=== PATIENT | female | born 1945 | race Caucasian/White ===

== ENCOUNTER 2023-07-19 17:57 | Inpatient (IN) | payer OTHER ==
[2023-07-19 18:59] LABS: Protime INR 1.51
[2023-07-19 19:00] LABS: Absolute Lymphocytes (CBC) 6.3 K/uL (0.7-4.9); Hematocrit 24.5 % (36.0-45.0); MCV 115.8 fL (80-100); MPV 8.5 fL (7.6-11.3); Platelets 157 thou/uL (152-406); RBC Red Blood Cell Count 2.12 M/uL (3.86-4.86)
[2023-07-19 19:03] LABS: Albumin 1.7 g/dL (3.4-5.0); Bilirubin Direct 9.2 mg/dL (0-0.2); Bilirubin Total 11.2 mg/dL (0.2-1.0); Magnesium 1.8 mg/dL (1.6-2.4); Potassium 4.2 mEq/L (3.5-5.1); Protein, Total 7.7 g/dL (6.4-8.2); Troponin High Sensitivity 10.6 pg/mL (<58.9)
[2023-07-19] MEDS ORDERED: LORazepam 2 MG/ML VIAL ONE (20:09)
--- NOTE | 2023-07-19 20:16 | RAD REPORT ---
EXAM DESCRIPTION: Eliseo Single View07/19/2023 7:13 pm CLINICAL HISTORY: DYSPNEA COMPARISON: No comparisons TECHNIQUE: Portable AP view of the chest. FINDINGS: Patchy bibasilar opacities with interstitial thickening, with a crescentic linear opacity at the left lung base. No pneumothorax or effusion. The cardiomediastinal contours are unremarkable. IMPRESSION: Mild bibasilar patchy opacities, in part interstitial, which may be related to chronic i nterstitial disease or fibrosis.
[2023-07-19 21:01] LABS: Platelet Estimate ADEQ; White Blood Cell Scan OK (OK)
[2023-07-19 21:02] LABS: Anisocytosis 1+; Blood Morphology Comment NOTED (NOT SEEN); Poikilocytosis 1+
--- NOTE | 2023-07-19 21:09 | RAD REPORT ---
EXAM DESCRIPTION: CT - Abdomen Pelvis W Contrast - 07/19/2023 8:25 pm CLINICAL HISTORY: ABDOMINAL DISTENTION COMPARISON: Chest Single View dated 07/19/2023 TECHNIQUE: Thin cut axial CT imaging of the abdomen and pelvis was performed following intravenous a dministration of intravenous contrast. Multiplanar reformats were generated and reviewed. All CT scans are performed using dose optimization technique as appropriate and may include automated exposure control or mA/KV adjustment according to patient size. FINDINGS: Small layering left pleural effusion with underlying segmental atelectasis. Calcified left lower lobe 1.9 cm nodule suggest granuloma. The liver demonstrates heterogeneous enhancement particularly along its central portions, with lobula jasmyne contour. Findings may relate to transient hepatic enhancement differences in the setting of cirrh osis. Evaluation for focal masses is limited on this single-phase exam. Re- cannulization of the umbi lical vein, with portosystemic shunting seen in the region of the anal canal as well. Spleen, adrenal glands, and pancreas show no suspicious findings apart from punctate granulomatous calcifications of the pancreas. . Gallbladder shows apparent wall thickening, which may be present in the setting of c irrhosis and ascites. Symmetric renal function is seen with no hydronephrosis or suspicious renal mass. No dilated bowel loops. Prominent fluid-filled central abdominal small bowel loops without evidence o f focal transition although breathing motion artifact limits evaluation, with mild bowel wall thicken ing. Moderate free ascites. No free air, fluid collections, or inflammatory stranding. No hernia, mas s or bulky lymphadenopathy. The urinary bladder is without significant finding. No suspicious bony findings. Mild to moderate diffuse body wall edema. IMPRESSION: Stigmata of hepatic cirrhosis and portal hypertension. Heterogeneous enhancement particularly in the central aspects of the liver, favored to represent ni sient hepatic enhancement differences. Evaluation for hepatic focal lesions is limited on this single -phase exam. Fluid filling within nondistended small bowel loops with mild wall prominence. Findings may relate to diarrheal state or enteropathy in the setting of cirrhosis and portal hypertension. Moderate free ascites. Small left pleural effusion and [id number] diffuse body wall edema, whic h may indicate a degree of volume overload.
--- NOTE | 2023-07-19 21:25 | ER ---
Nurse's Notes [facility] Name: Columba Romero Age: 78 yrs Sex: Female : 1945 Arrival Date: 07/19/2023 Time: 17:57 Bed 4 Private MD: Diagnosis: Alcoholic cirrhosis of liver with ascites;Acute and subacute hepatic failure without coma Presentation: 07/19 18:13 Chief complaint: Patient states: Abdominal swelling, swelling to bilateral legs, hx of ph liver cirrhosis, on 5L NC which she uses at home. Also reports SOB with exertion. Coronavirus screen: Vaccine status: Patient reports receiving the 1st dose of the Covid vaccine. Ebola Screen: No symptoms or risks identified at this time. Initial Sepsis Screen: Does the patient meet any 2 criteria? No. Patient's initial sepsis screen is negative. Does the patient have a suspected source of infection? No. Patient's initial sepsis screen is negative. Risk Assessment: Do you want to hurt yourself or someone else? Patient reports no desire to harm self or others. Onset of symptoms was July 19, 2023. 18:13 Method Of Arrival: Wheelchair ph 18:13 Acuity: KAYDEN 2 ph Triage Assessment: 18:20 General: Appears distressed, Behavior is cooperative, appropriate for age, agitated, bp uncooperative. Pain: Complains of pain in abdomen. GI: Abdomen is distended, noted to have ascites. Historical: - Allergies: 18:20 Latex, Natural Rubber; ph 18:20 Codeine; ph 18:20 [place]; ph - PMHx: 18:20 COPD; Cirrhosis of liver; Hypertensive disorder; Diabetes mellitus; ph - PSHx: 18:20 Total abdominal hysterectomy; ph - Immunization history:: Adult Immunizations unknown. - Social history:: Smoking status: Patient denies any tobacco usage or history of. Screenin:32 [facility] ED Fall Risk Assessment (Adult) History of falling in the last 3 months, bp including since admission No falls in past 3 months (0 pts). Abuse screen: Denies threats or abuse. Denies injuries from another. Nutritional screening: No deficits noted. Tuberculosis screening: No symptoms or risk factors identified. Assessment: 18:20 General: SEE TRIAGE NOTE. bp 19:46 Reassessment: Patient appears in no apparent distress at this time. Patient and/or jw7 family updated on plan of care and expected duration. Pain level reassessed. Patient is alert, oriented x 3, equal unlabored respirations, skin warm/dry/pink. 20:00 General: Pt refused to be hooked up to monitor for vital signs. . jw7 20:50 Reassessment: Patient appears in no apparent distress at this time. No changes from 7 previously documented assessment. Patient and/or family updated on plan of care and expected duration. Pain level reassessed. Patient is alert, oriented x 3, equal unlabored respirations, skin warm/dry/pink. 21:30 Reassessment: Patient appears in no apparent distress at this time. No changes from jw7 previously documented assessment. Patient and/or family updated on plan of care and expected duration. Pain level reassessed. Patient is alert, oriented x 3, equal unlabored respirations, skin warm/dry/pink. 22:30 Reassessment: Patient appears in no apparent distress at this time. No changes from 7 previously documented assessment. Patient and/or family updated on plan of care and expected duration. Pain level reassessed. Patient is alert, oriented x 3, equal unlabored respirations, skin warm/dry/pink. 23:30 Reassessment: Patient appears in no apparent distress at this time. Patient and/or jw7 family updated on plan of care and expected duration. Pain level reassessed. Patient is alert, oriented x 3, equal unlabored respirations, skin warm/dry/pink. Vital Signs: 18:13 BP 107 / 59; Pulse 97; Resp 18; Temp 97.2; Pulse Ox 99% on 5 lpm NC; Weight 63.5 kg; ph Height 5 ft. 2 in. ; 19:46 BP 112 / 65; Pulse 94; Resp 18; Pulse Ox 99% ; jw7 23:46 BP 116 / 57; Pulse 93; Resp 17 S; Pulse Ox 100% on 2 lpm NC; jw7 07/20 00:58 BP 136 / 70; Pulse 99; Resp 20; Pulse Ox 100% on 2 lpm NC; km8 07/19 18:13 Body Mass Index 25.61 (63.50 kg, 157.48 cm) ph ED Course: 07/19 18:03 Patient arrived in ED. rg4 18:06 Carline Siddiqui PA-C is PHCP. sb4 18:06 Philip Keating MD is Attending Physician. sb4 18:20 Triage completed. ph 18:21 Arm band placed on Patient placed in an exam room. ph 18:23 Td Mckeon, RN is Primary Nurse. bp 18:32 Patient has correct armband on for positive identification. bp 18:32 Inserted saline lock: 22 gauge in right antecubital area, using aseptic technique. bp Blood collected. 19:15 XRAY CXR (1 view) In Process Unspecified. EDMS 20:27 CT Abd/Pelvis - IV Contrast Only In Process Unspecified. EDMS 21:24 Carline Siddiqui PA-C is PHCP. sb4 21:24 Edenilson Almonte MD is Hospitalizing Provider. sb4 23:44 No provider procedures requiring assistance completed. Patient admitted, IV remains in jw7 place. 23:45 Provided Education on: Need for admit . 7 Administered Medications: 20:10 Drug: Ativan IVP 0.5 mg IVP once Route: IVP; Site: right antecubital; bp 07/20 01:20 Follow up: Response: No adverse reaction km8 Medication: 07/19 23:45 VIS not applicable for this client. [facility] Outcome: 21:25 Decision to Hospitalize by Provider. sb4 07/20 01:18 Admitted to Med/surg accompanied by tech, via stretcher, room 232, with oxygen, with km8 chart, Report called to NENA Hatch Condition: stable Instructed on the need for admit, Demonstrated understanding of instructions, 01:20 Patient left the ED. km8 Signatures: Dispatcher [employer] EDRI Mariya Meng RN RN ph Veronique Salmon rg4 Td Mckeon, RN Marleen Leiva RN RN Carline Coon PA-C PA-C [facility] Edna Cheng RN RN km8 Corrections: (The following items were deleted from the chart) 01:19 07/19 23:44 Admitted to Med/surg accompanied by tech, via wheelchair, room 232, with km8 oxygen, jw7 07/20 01:20 02 23:44 Condition: stable [facility] km8 07/20 01:20 07/19 23:44 Instructed on the need for admit, Demonstrated understanding of km8 instructions, 7 07/20 01:20 07/19 23:44 Admitted to Med/surg accompanied by tech, via stretcher, room 232, with km8 oxygen, with chart, Report called to NENA Hatch km8
--- NOTE | 2023-07-19 21:25 | EDPHYS ---
Physician Documentation [facility] Name: Columba Romero Age: 78 yrs Sex: Female : 1945 Arrival Date: 07/19/2023 Time: 17:57 Bed 4 Private MD: JERRY Physician Philip Keating HPI: 07/19 18:34 This 78 yrs old Female presents to ER via Wheelchair with complaints of swelling, sob. sb4 18:38 Patient with history of alcoholic cirrhosis and COPD on home oxygen presents with sb4 complaints of lower extremity swelling, abdominal swelling, and shortness of breath. states that she stopped taking all of her medications about 2 weeks ago because she felt like they were making her worse. she does still drink alcohol. has required paracentesis in the past. Historical: - Allergies: 18:20 Latex, Natural Rubber; ph 18:20 Codeine; ph 18:20 [place]; ph - PMHx: 18:20 COPD; Cirrhosis of liver; Hypertensive disorder; Diabetes mellitus; ph - PSHx: 18:20 Total abdominal hysterectomy; ph - Immunization history:: Adult Immunizations unknown. - Social history:: Smoking status: Patient denies any tobacco usage or history of. ROS: 18:44 Constitutional: Negative for fever, chills, and weight loss, sb4 18:44 Cardiovascular: Positive for edema, orthopnea, 18:44 Respiratory: Positive for dyspnea on exertion, shortness of breath, 18:44 Abdomen/GI: Positive for 18:44 All other systems are negative, Exam: 18:44 Cardiovascular: Regular rate and rhythm with a normal S1 and S2. MS/ Extremity: sb4 Pulses equal, no cyanosis. Neurovascular intact. Full, normal range of motion. 18:44 Constitutional: The patient appears alert, awake, obviously ill, 18:44 Eyes: Sclera: icterus, is present, 18:44 Respiratory: moderate respiratory distress is noted, Respirations: shallow respirations, 18:44 Abdomen/GI: Inspection: distension, that is moderate, in the right upper quadrant, left upper quadrant, right lower quadrant and left lower quadrant, 18:44 Skin: Appearance: Color: jaundiced, Vital Signs: 18:13 BP 107 / 59; Pulse 97; Resp 18; Temp 97.2; Pulse Ox 99% on 5 lpm NC; Weight 63.5 kg; ph Height 5 ft. 2 in. ; 19:46 BP 112 / 65; Pulse 94; Resp 18; Pulse Ox 99% ; jw7 23:46 BP 116 / 57; Pulse 93; Resp 17 S; Pulse Ox 100% on 2 lpm NC; jw7 07/20 00:58 BP 136 / 70; Pulse 99; Resp 20; Pulse Ox 100% on 2 lpm NC; km8 07/19 18:13 Body Mass Index 25.61 (63.50 kg, 157.48 cm) ph MDM: 07/19 18:22 Patient medically screened. sb4 21:24 Data reviewed: vital signs, nurses notes, lab test result(s), EKG, radiologic studies, sb4 I have discussed the patient's presentation/case with the attending Emergency Department Physician; and as a result, I will admit patient. Counseling: I had a detailed discussion with the patient and/or guardian regarding the historical points, exam findings, and any diagnostic results supporting the discharge/admit diagnosis, lab results, radiology results, the need for further work-up and treatment in the hospital. 07/19 18:22 Order name: BMP; Complete Time: 19:05 sb4 07/19 18:22 Order name: CBC with Diff; Complete Time: 21:04 sb4 07/19 18:22 Order name: Hepatic Function; Complete Time: 19:05 sb4 07/19 18:22 Order name: Lipase; Complete Time: 19:05 sb4 07/19 18:22 Order name: Magnesium; Complete Time: 19:05 sb4 07/19 18:22 Order name: NT PRO-BNP; Complete Time: 19:05 sb4 07/19 18:22 Order name: PT-INR; Complete Time: 19:01 sb4 07/19 18:22 Order name: Ptt, Activated; Complete Time: 19:01 sb4 07/19 18:22 Order name: Troponin HS; Complete Time: 19:05 sb4 07/19 20:23 Order name: AMMONIA sb4 07/19 20:23 Order name: Blood Culture Adult (2) sb4 07/19 20:23 Order name: Lactate w/ 2H reflex if indic. sb4 07/19 21:02 Order name: CBC Smear Scan; Complete Time: 21:04 EDMS 07/19 22:21 Order name: Urinalysis w/ reflexes EDMS 07/19 22:21 Order name: CBC with Automated Diff EDFL 07/19 22:21 Order name: CBC with Automated Diff EDFL 07/19 22:21 Order name: Comprehensive Metabolic Panel EDFL 07/19 22:21 Order name: Comprehensive Metabolic Panel EDFL 07/19 22:24 Order name: Acute Hepatitis Panel EDFL 07/19 22:24 Order name: Fecal Leukocyte Stain EDFL 07/19 22:27 Order name: Alpha Fetoprotein-Tumor Marker EDFL 07/19 22:27 Order name: Alpha Fetoprotein-Tumor Marker EDFL 07/19 18:22 Order name: XRAY CXR (1 view); Complete Time: 20:18 sb4 07/19 19:06 Order name: CT Abd/Pelvis - IV Contrast Only; Complete Time: 21:09 sb4 07/19 22:27 Order name: Abdomen Exam Limited EDFL 07/19 18:22 Order name: EKG; Complete Time: 18:23 sb4 07/19 22:21 Order name: CONS Physician Consult EDFL 07/19 18:22 Order name: Cardiac monitoring; Complete Time: 18:31 sb4 07/19 18:22 Order name: EKG - Nurse/Tech; Complete Time: 19:23 sb4 07/19 18:22 Order name: IV Saline Lock; Complete Time: 18:31 sb4 07/19 18:22 Order name: Labs collected and sent; Complete Time: 18:31 sb4 07/19 18:22 Order name: O2 Per Protocol; Complete Time: 18:31 sb4 07/19 18:22 Order name: O2 Sat Monitoring; Complete Time: 18:31 sb4 EC:32 Rate is 93 beats/min. Rhythm is regular, Normal Sinus Rhythm. AR interval is normal at sb4 164 msec. QRS interval is normal at 58 msec. QT interval is normal at 334 msec. T waves are Normal. No ST changes noted. Clinical impression: No evidence of ischemia. Interpreted by me. Reviewed by me. Administered Medications: 20:10 Drug: Ativan IVP 0.5 mg IVP once Route: IVP; Site: right antecubital; bp 07/20 01:20 Follow up: Response: No adverse reaction km8 Disposition Summary: 07/19/23 21:25 Hospitalization Ordered Notes: Hospitalization Status: Inpatient Admission sb4 Provider: Edenilson Almonte sb4 Location: Telemetry/MedSurg (Inpatient) sb4 Condition: Fair sb4 Problem: an acute exacerbation sb4 Symptoms: are unchanged sb4 Bed/Room Type: Standard sb4 Room Assignment: 232(07/19/23 23:39) vc1 Diagnosis - Alcoholic cirrhosis of liver with ascites sb4 - Acute and subacute hepatic failure without coma sb4 Forms: - Medication Reconciliation Form sb4 - SBAR form sb4 - Leadership Thank You Letter sb4 Signatures: Dispatcher [employer] EDMariya Sykes, RN RN Td Mckeon RN RN bp Jaymie Sabillon RN RN vc1 Carline Siddiqui PA-C PA-C sb4 Edna Cheng RN km8 Corrections: (The following items were deleted from the chart) 07/19 18:45 18:38 Patient with history of cirrhosis and COPD on home oxygen presents with sb4 complaints of. sb4 23:39 21:25 sb4 vc1
[2023-07-19] MEDS ORDERED: ONDANSETRON 4 MG/2 ML VIAL IV PRN (22:16)
[2023-07-19] MEDS: LACTULOSE 20 GM/30 ML UCUP PO SCH (22:24)
[2023-07-19] MEDS: ALBUMIN HUMAN 25% 100 ML IV ONE (22:25)
--- NOTE | 2023-07-19 23:32 | P.HP ---
Certification for Inpatient With expected LOS: >2 Midnights Practitioner: I am a practitioner with admitting privileges, knowledge of patient current condition, hospital course, and medical plan of care. Services: Services provided to patient in accordance with Admission requirements found in Title 42 Section 412.3 of the Code of Federal Regulations Patient History Date of Service: 07/19/23 Reason for admission: Decompensated liver cirrhosis History of Present Illness: 78-year-old female with a history of alcoholic liver cirrhosis and COPD on 5 L home oxygen presented to the ED with 2 weeks of worsening shortness of breath, generalized swelling worsened lower extremities and abdomen. Patient also with increasing jaundice and episodes of vomiting. She has chronic loose stools in the last 6 months. She continues to drink large volume of wine per day and denies any history of hospitalization from alcohol withdrawal. Patient states she stopped her medications 2 weeks ago because it made her weak and nauseous, records of the medications were not available at this time. On arrival to the ED, vital signs showed a BP of 107/59. Notable ED labs include WBC 12.6, H&H 8.3/24.5, MCV 115, platelets 157, INR 1.5, Na 129, BUN 24,Cr 1.14, Tbili 11.2, Dbili 9.2, AST 208, ALT 72, ALP 540 and BNP 530. Chest x-ray showed mild bibasilar patchy opacities from chronic interstitial disease versus fibrosis. CT abdomen and pelvis revealed hepatic cirrhosis with portal hypertension and fluid-filled nondistended small bowel loops from diarrhea versus enteropathy. So far she has received vitamin K, PPI, FFP and Vanc in the ED. Allergies acetaminophen [From [place]] Allergy (Intermediate, Verified 07/19/23 23:43) Nausea/Vomiting codeine Allergy (Intermediate, Verified 07/19/23 23:43) Nausea/Vomiting hydrocodone [From [place]] Allergy (Intermediate, Verified 07/19/23 23:43) Nausea/Vomiting Latex, Natural Rubber Allergy (Intermediate, Verified 07/19/23 23:43) Itching/Hives/Rash Review of Systems 10-point ROS is otherwise unremarkable Physical Examination - Vital Signs Temperature: 97.2 F Blood Pressure: 107/59 Pulse: 97 Respirations: 18 Pulse Ox (%): 97 (On 5 L) - Physical Exam General: Alert, In no apparent distress, Oriented x3 HEENT: Atraumatic, Normocephalic, PERRLA, Scleral icterus Neck: Supple Respiratory: Clear to auscultation bilaterally, Normal air movement Cardiovascular: Normal S1 S2, Edema Gastrointestinal: Distended, Hepatomegaly, Ascites, Tenderness Musculoskeletal: Swelling Integumentary: No rashes, No erythema, Other (Generalized jaundice) Neurological: Normal speech, Normal strength at 5/5 x4 extr, Sensation intact - Studies Laboratory Data (last 24 hrs) 07/19/23 07/19/23 07/19/23 18:30 18:30 18:30 WBC 12.60 H Hgb 8.3 L Hct 24.5 L Plt Count 157 PT 16.4 H INR 1.51 APTT 38.4 H Sodium 129 L Potassium 4.2 BUN 24 H Creatinine 1.14 H Glucose 96 Magnesium 1.8 Total Bilirubin 11.2 H AST 208 H ALT 72 H Alkaline Phosphatase 540 H Lipase 63 Assessment and Plan - Plan Acute on chronic liver failure Decompensated liver cirrhosis Acute kidney injury Hyperbilirubinemia COPD without exacerbation Chronic diarrhea Chronic alcohol abuse Portal hypertension Ascites Microcytic anemia Plan Admit to inpatient Patient will need diagnostic and therapeutic paracentesis Will hydrate with albumin tonight Empirical ceftriaxone for SBP CIWA protocol with Ativan Abdominal ultrasound to evaluate for thrombosis Follow up Alpha-fetoprotein, hepatitis panel and ammonia levels Start lactulose and rifaximin As needed bronchodilators Blood glucose monitoring Consult GI - Advance Directives Does patient have a Living Will: No Does patient have a Durable POA for Healthcare: No
[2023-07-20] MEDS: ALBUTEROL 2.5 MG/3 ML NEB SOL NEB SCH (01:00)
[2023-07-20] MEDS: IPRATROPIUM BROM 0.5MG/2.5ML NEB SCH (01:49)
[2023-07-20 02:07] VITALS: BMI 25.6
[2023-07-20 02:34] LABS: Hematocrit 26.9 % (36.0-45.0); MCV 115.2 fL (80-100); MPV 8.6 fL (7.6-11.3); Platelets 139 thou/uL (152-406); RBC Red Blood Cell Count 2.34 M/uL (3.86-4.86)
[2023-07-20] MEDS: ALBUMIN HUMAN 25% 100 ML IV ONE (03:10)
[2023-07-20 03:11] LABS: Albumin 1.7 g/dL (3.4-5.0); Bilirubin Total 11.7 mg/dL (0.2-1.0); Potassium 4.6 mEq/L (3.5-5.1); Protein, Total 7.9 g/dL (6.4-8.2)
[2023-07-20 03:45] LABS: Anisocytosis 1+; Blood Morphology Comment NOTED (NOT SEEN); Macrocytosis 3+; Platelet Estimate ADEQ
[2023-07-20] MEDS ORDERED: LORazepam 2 MG/ML VIAL IV PRN ×2 (05:21→13:23)
[2023-07-20] MEDS: LORazepam 2 MG/ML VIAL IV SCH (06:00)
[2023-07-20] MEDS: INSULIN REGULAR (HUMAN) 100 UNIT/ML SQ SCH (07:30)
--- NOTE | 2023-07-20 07:55 | RAD REPORT ---
EXAM DESCRIPTION: US - Abdomen Exam Limited - 07/20/2023 4:45 am CLINICAL HISTORY: evaluate for thrombosis Abdominal pain COMPARISON: Abdomen Pelvis W Contrast dated 07/19/2023 FINDINGS: The gallbladder demonstrates thickened wall measuring up to 7 mm. Internal hyperdense mate rial is seen within the gallbladder which may represent stones or sludge. The common bile duct is nor mal measuring 4 mm. The liver demonstrates significant heterogenous appearance. IMPRESSION: Probable gallbladder wall thickening which may be secondary to liver dysfunction. Inter celia the gallbladder demonstrates hyperdense material which may be sludge or stone. No thrombosis of portal vein seen.
[2023-07-20] MEDS: Rifaximin 550 MG Tab PO SCH (09:00)
[2023-07-20 10:00] LABS: Hepatitis B Core IgM Nonreactive (Nonreactive); Hepatitis B surface AG Interp. Nonreactive (Nonreactive); Hepatitis C Virus Ab Nonreactive (Nonreactive)
--- NOTE | 2023-07-20 10:04 | RAD REPORT ---
EXAM DESCRIPTION: US - Paracentesis Proc Guidance - 07/20/2023 9:55 am CLINICAL HISTORY: diagnostic and therapeutic Ascites COMPARISON: Abdomen Pelvis W Contrast dated 07/19/2023 FINDINGS: Informed consent was obtained and time-out was performed. Patient's abdomen was prepped and draped in the usual sterile fashion. 1% lidocaine was used for loca l anesthetic purposes. A small skin incision was made right sided the abdomen. A paracentesis catheter was guided into the p eroneal cavity under sonographic guidance. A small amount of fluid was sent for requested lab studies. A large volume paracentesis was performed . The patient tolerated the procedure well. Patient was administered IV albumin per protocol following the procedure. IMPRESSION: Successful ultrasound-guided paracentesis.
[2023-07-20] MEDS: CEFTRIAXONE 1,000 MG in NA CHLORIDE 0.9% 50 ML IVPB SCH (11:54)
[2023-07-20 12:53] LABS: Appearance CLEAR (CLEAR); Body Fluid Source PERITONEAL; Body Fluid WBC 11 /mm^3; Color of fluid Yellow (COLORLESS)
[2023-07-20] MEDS: LORAZEPAM 1 MG TABLET PO SCH (16:10)
--- NOTE | 2023-07-20 16:28 | P.PN ---
Subjective Date of Service: 07/20/23 Chief Complaint: Decompensated liver cirrhosis Patient seen sitting in bed. She denies any complaint at the moment. She states she feels fine. She is oriented x 3, no reported tremors. She has been tolerating diet. Physical Examination - Vital Signs Temperature: 98.8 F Blood Pressure: 110/47 Pulse: 90 Respirations: 24 Pulse Ox (%): 97 - Physical Exam General: Alert, In no apparent distress, Oriented x3 HEENT: Mucous membr. moist/pink Neck: Supple, JVD not distended Respiratory: Normal air movement, Other (Mild bibasilar crackles) Cardiovascular: Regular rate/rhythm, Normal S1 S2, Edema (Bilateral lower extremities) Gastrointestinal: Normal bowel sounds, Soft and benign, No tenderness, Distended (Mildly distended) Musculoskeletal: No erythema, No tenderness Integumentary: No erythema, No cyanosis, Other (Jaundiced skin) Neurological: Normal strength at 5/5 x4 extr - Studies Laboratory Data (last 24 hrs) 07/19/23 07/19/23 07/19/23 18:30 18:30 18:30 WBC 12.60 H Hgb 8.3 L Hct 24.5 L Plt Count 157 PT 16.4 H INR 1.51 APTT 38.4 H Sodium 129 L Potassium 4.2 BUN 24 H Creatinine 1.14 H Glucose 96 Magnesium 1.8 Total Bilirubin 11.2 H AST 208 H ALT 72 H Alkaline Phosphatase 540 H Lipase 63 Assessment And Plan - Plan Diagnosis Decompensated liver cirrhosis Acute kidney injury Hyperbilirubinemia COPD without exacerbation Chronic diarrhea Chronic alcohol abuse Portal hypertension Ascites Microcytic anemia Plan: Status post paracentesis. Peritoneal fluid likely transudative Status post albumin infusion. Discontinue IV Rocephin. CIWA protocol with Ativan Normal ammonia level Continue lactulose and rifaximin Continue bronchodilators. Avoid steroids for now Blood glucose monitoring Diet as tolerated.
[2023-07-21 05:33] LABS: Hematocrit 21.7 % (36.0-45.0); MCV 115.2 fL (80-100); MPV 8.7 fL (7.6-11.3); Platelets 131 thou/uL (152-406); RBC Red Blood Cell Count 1.88 M/uL (3.86-4.86)
[2023-07-21 05:52] LABS: Albumin 1.6 g/dL (3.4-5.0); Bilirubin Total 9.6 mg/dL (0.2-1.0); Potassium 4.1 mEq/L (3.5-5.1); Protein, Total 6.7 g/dL (6.4-8.2)
[2023-07-21 07:22] LABS: Blood Morphology Comment NOTED (NOT SEEN); Macrocytosis 1+; Platelet Estimate ADEQ
[2023-07-21 10:11] VITALS: O2SAT 96
[2023-07-21] MEDS: MIDODRINE HCL 5 MG TABLET PO SCH (12:45)
--- NOTE | 2023-07-21 16:09 | P.DS ---
Admission Date: 07/19/23 Discharge Date: 07/21/23 Disposition: HOSPICE-HOME Discharge Condition: FAIR Reason for Admission: Decompensated liver cirrhosis Brief History of Present Illness: 78-year-old female with a history of alcoholic liver cirrhosis and COPD on 5 L home oxygen presented to the ED with 2 weeks of worsening shortness of breath, generalized swelling worsened lower extremities and abdomen. Patient also with increasing jaundice and episodes of vomiting. She reports chronic loose stools in the last 6 months. She continues to drink wine per day and denies any history of hospitalization from alcohol withdrawal. On arrival to the ED, vital signs showed a BP of 107/59. Notable ED labs include WBC 12.6, H&H 8.3/24.5, MCV 115, platelets 157, INR 1.5, Na 129, BUN 24,Cr 1.14, Tbili 11.2, Dbili 9.2, AST 208, ALT 72, ALP 540 and BNP 530. Chest x-ray showed mild bibasilar patchy opacities from chronic interstitial disease versus fibrosis. CT abdomen and pelvis revealed hepatic cirrhosis with portal hypertension and fluid-filled nondistended small bowel loops from diarrhea versus enteropathy. She received vitamin K, PPI, FFP and Vanc in the ED. Apparently patient has been on hospice and has been getting periodic paracentesis for recurrent ascites. Patient was hospitalized for further management. Hospital Course: Diagnosis Decompensated liver cirrhosis Acute kidney injury Hyperbilirubinemia COPD without exacerbation Chronic diarrhea Chronic alcohol abuse Portal hypertension Ascites Microcytic anemia Hospital course Patient was admitted to the medical floor. She underwent paracentesis and about 3 L of ascitic fluid drained. There was a concern for alcohol withdrawal but patient did not exhibit any signs of it. She was initially placed on CIWA protocol which was later discontinued. Patient was started on Aldactone to help curb recurrent ascites. She has been on hospice before this hospitalization and the plan is for patient to resume home hospice. Patient reported to have fallen overnight, no injuries sustained. Hospice physician Dr. Guerrero informed, patient will discharge back to home hospice. Vital Signs/Physical Exam: Temp Pulse Resp BP Pulse Ox 98.5 F 86 16 110/57 L 96 07/21/23 15:50 07/21/23 15:50 07/21/23 15:50 07/21/23 15:50 07/21/23 15:50 General: In no apparent distress, Oriented x2 HEENT: Mucous membr. moist/pink Neck: JVD not distended Respiratory: Clear to auscultation bilaterally, Normal air movement Cardiovascular: Regular rate/rhythm, Normal S1 S2 Gastrointestinal: Normal bowel sounds, Soft and benign, Non-distended, No tenderness Musculoskeletal: No swelling Integumentary: No cyanosis Neurological: Normal strength at 5/5 x4 extr Laboratory Data at Discharge: WBC 12.30 thou/uL (4.3-10.9) H 07/21/23 04:52 Hgb 7.4 g/dL (12.0-15.0) L D 07/21/23 04:52 Hct 21.7 % (36.0-45.0) L 07/21/23 04:52 Plt Count 131 thou/uL (152-406) L 07/21/23 04:52 PT 16.4 SECONDS (9.5-12.5) H 07/19/23 18:30 INR 1.51 07/19/23 18:30 APTT 38.4 SECONDS (24.3-36.9) H 07/19/23 18:30 Sodium 131 mEq/L (136-145) L 07/21/23 04:52 Potassium 4.1 mEq/L (3.5-5.1) 07/21/23 04:52 BUN 31 mg/dL (7-18) H 07/21/23 04:52 Creatinine 1.48 mg/dL (0.55-1.02) H 07/21/23 04:52 Glucose 145 mg/dL (74-106) H 07/21/23 04:52 Magnesium 1.8 mg/dL (1.6-2.4) 07/19/23 18:30 Total Bilirubin 9.6 mg/dL (0.2-1.0) H 07/21/23 04:52 AST 163 U/L (15-37) H 07/21/23 04:52 ALT 61 U/L (13-56) H 07/21/23 04:52 Alkaline Phosphatase 429 U/L (45-117) H D 07/21/23 04:52 Lipase 63 U/L (13-75) 07/19/23 18:30 Home Medications: Midodrine HCl [Proamatine*] 5 mg PO TID #90 tab 07/21/23 Spironolactone [Aldactone*] 50 mg PO DAILY #30 tab 07/21/23 New Medications: Spironolactone [Aldactone*] 50 mg PO DAILY #30 tab Midodrine HCl [Proamatine*] 5 mg PO TID #90 tab Physician Discharge Instructions: [facility] Charleen P:[phone] F:[phone] Continuous Process Coffee Roaster: Dr. Guerrero Diet: Regular Activity: Fall precautions Followup: CHRIS HANSEN [Primary Care Provider] - Time spent managing pt's care (in minutes): 38
[2023-07-21 16:10] VITALS: BP 110/57; TEMP 98.5
[2023-07-22] MEDS ORDERED: LORazepam 2 MG/ML VIAL IV SCH (06:00)
[2023-07-22] MEDS ORDERED: SPIRONOLACTONE 25 MG TABLET PO SCH (09:00)
--- NOTE | 2023-07-22 16:16 | EKG ---
Test Date: 2023-07-19 Test Time: 19:24:54 Executive Creative Director: KANWAL MEASUREMENT RESULTS: Intervals: Rate: 95 OR: 160 QRSD: 72 QT: 364 QTc: 457 [place]: P: 64 OR: 160 QRS: 11 T: 42 INTERPRETIVE STATEMENTS: Normal sinus rhythm Normal ECG No previous ECG available for comparison Electronically Signed On 07-22-23 16:07:35 LANDSCAPER HELPER by Wero Salcido
--- NOTE | 2023-07-22 16:16 | EKG ---
Test Date: 2023-07-19 Test Time: 19:27:07 Tape Editor: KANWAL MEASUREMENT RESULTS: Intervals: Rate: 93 RI: 164 QRSD: 58 QT: 334 QTc: 415 [place]: P: 22 RI: 164 QRS: 0 T: 23 INTERPRETIVE STATEMENTS: Normal sinus rhythm Anterior infarct, age undetermined Abnormal ECG Compared to ECG 07/19/2023 19:24:54 Myocardial infarct finding now present Electronically Signed On 07-22-23 16:07:33 SUPPLY SERVICE WORKER by Wero Salcido
[2023-07-22 21:01] LABS: GLUCOSE, PERITONEAL FLUID 120 mg/dL; LD, PERITONEAL FLUID 41 U/L (<63); TOTAL PROTEIN,PERITONEAL FLUID <3.0 g/dL
== END 2023-07-21 18:21 | disposition hospice, home (50) | DRG 432 ==
LOC: ER 17:57 → ERHOLD 22:15 → 2ND 07-20 01:15
PROVIDERS: ADMIT Internal Medicine; ATTEND Internal Medicine
PROC: 0W9G3ZX Drainage of Peritoneal Cavity, Percutaneous Approach, Diagnostic (ICD-10-PCS; principal; 2023-07-20)
DX: K70.31 Alcoholic cirrhosis of liver with ascites (principal); K72.00 Acute and subacute hepatic failure without coma; K76.6 Portal hypertension; N17.9 Acute kidney failure, unspecified; I10 Essential (primary) hypertension; E11.9 Type 2 diabetes mellitus without complications; F10.10 Alcohol abuse, uncomplicated; E80.6 Other disorders of bilirubin metabolism; K52.9 Noninfective gastroenteritis and colitis, unspecified; J44.9 Chronic obstructive pulmonary disease, unspecified; Z51.5 Encounter for palliative care; Z88.5 Allergy status to narcotic agent; Z99.81 Dependence on supplemental oxygen; Z91.040 Latex allergy status; Z90.710 Acquired absence of both cervix and uterus; Z79.899 Other long term (current) drug therapy
CPT/HCPCS: 36415; 49083; 71045; 74177; 76705; 80048; 80053; 80074; 80076; 82042; 82105; 82140; 82150; 82945; 82947; 83605; 83615; 83690; 83735; 83880; 84157; 84484; 85025; 85610; 85730; 87040; 87070; 89050; 89055; 93005; 94640; J0696; J7613; J7644; P9047; Q9967